=== PATIENT | female | born 1975 | race Asian ===

== ENCOUNTER 2018-11-07 22:18 | Emergency (ER) | payer OTHER ==
[~2018-11-07] VITALS: Ht 170.2 cm; Wt 89.4 kg
[2018-11-07 22:24] VITALS: BP_SYST 141
--- NOTE | 2018-11-07 23:53 | NUR ---
Patient to ER bed 8 to gown for evaluation. Side rails up. Report given to Ihsan MCKEON.
--- NOTE | 2018-11-07 23:58 | NUR ---
Pt C/O left earache since this afternoon. States earache radiates to the head and throat. Reports congestion x 1 week. Has not tried anything to relieve the pain at home. Denies any other symptoms at this time. Will continue to monitor.
[2018-11-08] MEDS ORDERED: ACETAMINOPHEN 500 MG TABLET PO ONE (00:30)
[2018-11-08] MEDS ORDERED: ACETAMINOPHEN 500 MG TABLET ONE (00:33)
--- NOTE | 2018-11-08 00:53 | NUR ---
ER at bedside examining patient.
[2018-11-08] MEDS ORDERED: NEOMYCIN/POLYMYX B/HYDROCORTISONE 10 ML EAR DROPS.SUSP OT ONE (01:00)
[2018-11-08] MEDS ORDERED: AMOXICILLIN 500 MG CAPSULE PO ONE (01:00)
[2018-11-08 01:27] VITALS: BP_SYST 141
--- NOTE | 2018-11-08 01:28 | NUR ---
Patient given written and verbal discharge instructions and verbalizes understanding. ER MD discussed with patient the results and treatment provided. Patient in stable condition. ID arm band removed. Rx of Cortisporin Otic Solution, Amoxicillin, and Acetaminophen given. Patient educated on pain management and to follow up with PMD. Pain Scale 0. Opportunity for questions provided and answered. Medication side effect fact sheet provided.
== END 2018-11-08 01:28 | disposition home or self-care (01) ==
LOC: SED 22:18
DX: H66.92 Otitis media, unspecified, left ear (principal); H60.92 Unspecified otitis externa, left ear
CPT/HCPCS: 99284